=== PATIENT | male | born 1985 | race Caucasian/White ===

== ENCOUNTER 2018-12-26 11:15 | Emergency (ER) | payer MEDICAID ==
[~2018-12-26] VITALS: Ht 167.6 cm; Wt 85.1 kg
[~2018-12-26 11:15] MED LIST: BACTDS PO; CEPH-443 PO; IBUP-1561 PO
[2018-12-26 11:17] VITALS: Ht 167.6 cm; Wt 85.1 kg
[2018-12-26] MEDS ORDERED: OSEL75CA23 PO (12:50)
[2018-12-26] MEDS ORDERED: ACET-141 PO (12:50)
[2018-12-26] MEDS ORDERED: D-ME118S24 PO (12:50)
[2018-12-26] MEDS ORDERED: IBUP-1561 PO (12:50)
--- NOTE | 2018-12-26 12:53 | ERD ---
ER Documentation Chief Complaint Chief Complaint Complains of fever, cough and feeling weak x 3 days HPI 33yo male with hx of diabetes presents for cough and fever x3 days. Fever is subjective. Cough noted to be dry. there is associated runny nose and general weakness. He took robitussin without relief. Denies CP or SOB. Denies abdominal pain, nausea or vomiting. He is eating a little less however has normal oral fluid intake and urination. No other modifying factors noted, no other treatments tried at home. ROS All systems reviewed and are negative except as per history of present illness. Medications Home Meds Active Scripts D-Methorphan Hb/P-Epd HCl/Bpm (Rxthvknfgy-Uzwsahednmv-Fh Syr) 118 Ml Syrup, 5 ML PO Q4H PRN for COUGH, #1 BOTTLE Prov:CHERELLE PALOMO DO 12/26/18 Ibuprofen* (Motrin*) 400 Mg Tab, 400 MG PO Q6H PRN for PAIN AND OR ELEVATED TEMP, #30 TAB Prov:CHERELLE PALOMO DO 12/26/18 Acetaminophen* (Acetaminophen*) 500 MG Extra Strength Tablet, 500 MG PO Q4H PRN for PAIN AND OR ELEVATED TEMP, #30 TAB Prov:CHERELLE PALOMO DO 12/26/18 Oseltamivir Phosphate* (Tamiflu*) 75 Mg Capsule, 75 MG PO BID for flu for 5 Days, #10 CAP Prov:CHERELLE PALOMO DO 12/26/18 Sulfamethoxazole-Trimethoprim* (Bactrim* DS) 800-160 Mg Tab, 1 TAB PO BID for 7 Days, #14 TAB 0 Refills Prov:BRIDGET LEMUS PA-C 05/15/16 Cephalexin* (Keflex*) 500 Mg Capsule, 500 MG PO TID for 7 Days, #21 CAP 0 Refills Prov:BRIDGET LEMUS PA-C 05/15/16 Ibuprofen* (Motrin*) 400 Mg Tab, 400 MG PO Q6 for 7 Days, #30 TAB 0 Refills Prov:BRIDGET LEMUS PA-C 05/15/16 Allergies Allergies: Coded Allergies: No Known Allergy (Unverified , 05/15/16) PMhx/Soc History of Surgery: No Anesthesia Reaction: No Hx Neurological Disorder: No Hx Respiratory Disorders: No Hx Cardiac Disorders: No Hx Psychiatric Problems: No Hx Miscellaneous Medical Probl: Yes (DM) Hx Alcohol Use: Yes Hx Substance Use: No Hx Tobacco Use: No Smoking Status: Never smoker FmHx Family History: No coronary disease Physical Exam Vitals Vital Signs Date Temp Pulse Resp B/P (MAP) Pulse Ox O2 O2 Flow FiO2 Time Delivery Rate 12/26/18 98.8 107 20 139/78 98 11:17 (98) Physical Exam Const: No acute distress Head: Atraumatic Eyes: Normal Conjunctiva ENT: Normal External Ears, bilateral tympanic membrane intact without erythema or bulging noted, nose and Mouth examination normal, no tonsillar swelling or exudate noted Neck: Full range of motion. No meningismus. Resp: Clear to auscultation bilaterally, no wheezing, rales, rhonchi Cardio: Regular rate and rhythm, no murmurs Skin: No petechiae or rashes Ext: No cyanosis, or edema Neur: Awake and alert Psych: Normal Mood and Affect Procedures/MDM Medical Decision Making: Differential diagnosis includes but not limited to upper respiratory infection, pneumonia, sepsis, meningitis, influenza. Patient appeared well on physical examination, nontoxic appearing. Lungs were clear to auscultation bilaterally. There is low suspicion for pneumonia, sepsis, meningitis. Patient likely has an upper respiratory infection, likely viral. Therefore antibiotics not indicated. Discussed symptomatic treatment with patient who agrees with plan. Patient given prescription for supportive medication(s). Patient will also be treated empirically for influenza. Patient given prescription for Tamiflu Patient advised to follow up with PCP in 1-2 days. Patient advised to return to ED for new or worsening symptoms. Patient stable on discharge from the ED. Disclaimer: Inadvertent spelling and grammatical errors are likely due to EHR/dictation software use and do not reflect on the overall quality of patient care. Also, please note that the electronic time recorded on this note does not necessarily reflect the actual time of the patient encounter. 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 FURTHER EVALUATION AND TREATMENT OF YOUR CONDITION CAN WAIT UNTIL YOU ARE SEEN IN YOUR DOCTORS OFFICE WITHIN THE NEXT 1-2 DAYS. IT IS YOUR RESPONSIBILITY TO MAKE AN APPOINTMENT FOR FOLOW-UP CARE. IF YOU HAVE A PRIMARY DOCTOR --you should call your primary doctor and schedule an appointment IF YOU DO NOT HAVE A PRIMARY DOCTOR YOU CAN CALL OUR PHYSICIAN REFERRAL HOTLINE AT IF YOU CAN NOT AFFORD TO SEE A PHYSICIAN YOU CAN CHOSE FROM THE FOLLOWING [facility] [address] [facility] [address] [facility] [facility] [address] [facility] [address]. [facility] [address] [facility]. [address] Additional Instructions: Call your primary care doctor TOMORROW for an appointment during the next 1-2 days.See the doctor sooner or return here if your condition worsens before your appointment time. CHERELLE PALOMO DO December 26, 2018 12:53
[2018-12-26 13:09] VITALS: BP 132/72; PULSE 99; RESP 20
== END 2018-12-26 13:08 | disposition home or self-care (01) ==
LOC: FTE 11:15
DX: T88.3XXA Malignant hyperthermia due to anesthesia, initial encounter (principal); E11.9 Type 2 diabetes mellitus without complications; R05 Cough; Y82.9 Unspecified medical devices associated with adverse incidents
CPT/HCPCS: 99283